=== PATIENT | female | born 1960 | race Caucasian/White ===

== ENCOUNTER → 2017-05-10 | Outpatient (CLI) | payer MEDICARE, OTHER ==
[~2017-05-10] MED LIST: ALPRAZOLAM0.5 MG PO; GLUCOPHAGE 500500 MG PO; LEVAQUIN500 MG PO; LOPRESSOR 25 MG25 MG PO; LORTAB 7.5-3251 EACH PO; NEURONTIN 300300 MG PO; PHENERGAN 25 MG25 M1 PO; PRAVACHOL40 MG PO; PREDNISONE10 MG PO; SPIRIVA HANDIH18 MCG INH; SPIRIVA18 MCG INH; SYMBICORT 160-1 INHA INH
== END ==
LOC: HEART 5 10:28
DX: J96.90 Respiratory failure, unspecified, unspecified whether with hypoxia or hypercapnia (principal); J44.9 Chronic obstructive pulmonary disease, unspecified
CPT/HCPCS: 94060; 94729

== ENCOUNTER → 2021-04-23 | Outpatient (CLI) | payer MEDICARE ==
[~2021-04-23] MED LIST changes: +ANTIVERT 25MG T25 MG PO; +ASPIRIN CHEWABL81 MG PO; +CEFUROXIME500 MG PO; +CELEXA20 MG PO; +ENSURE LIQUID237 ML PO; +FLEXERIL 10 MG10 MG PO; +HABITROL 14 MG P1 EA TD; +IPRAT-ALBUT 0.5-3 ML INH; +KLONOPIN TAB 00.5 MG PO; +MEDROL DOSEPAK 24 MG PO; +MEGACE 400400 MG/10 PO; +NORVASC 5 MG TAB5 MG PO; +OMNICEF 300 MG300 MG PO; +PROVENTIL HFA6.7 GM INH; +VIBRAMYCIN100 MG PO
== END ==
LOC: KOH-I 12:36
DX: R05 Cough (principal); J84.9 Interstitial pulmonary disease, unspecified
CPT/HCPCS: 71046